=== PATIENT | female | born 1995 | race Caucasian/White ===

== ENCOUNTER 2017-06-06 13:44 | Outpatient (CLI) | payer BC, OTHER ==
[~2017-06-06 13:44] MED LIST: ALBUAER INH; INDSR160 PO; MEDR150I IM; MULT-506 PO; OMEP40CA36 PO; ONDA4TAB7 SL; POLY335019 PO; RIZA10TA18 PO
== END 2017-06-06 14:40 | disposition home or self-care (01) ==
LOC: C.LD 13:44 → C.OPB 13:44
PROVIDERS: ATTEND Obstetrics & Gynecology
DX: O36.8120 Decreased fetal movements, second trimester, not applicable or unspecified (principal); R10.9 Unspecified abdominal pain; Z3A.21 21 weeks gestation of pregnancy

== ENCOUNTER → 2017-07-25 | Outpatient (CLI) | payer OTHER ==
[2017-07-25 12:36] LABS: HEMATOCRIT 36.2 % (37-47); HEMOGLOBIN 12.4 g/dL (12.0-16.0)
== END | disposition home or self-care (01) ==
LOC: C.LAB1850 10:20
PROVIDERS: ATTEND Obstetrics & Gynecology
DX: O99.213 Obesity complicating pregnancy, third trimester (principal); E66.9 Obesity, unspecified; Z3A.00 Weeks of gestation of pregnancy not specified

== ENCOUNTER → 2017-09-20 | Outpatient (CLI) | payer OTHER | END | disposition home or self-care (01) | LOC: C.LABSPEC 13:33 | PROVIDERS: ATTEND Obstetrics & Gynecology | DX: Z34.03 Encounter for supervision of normal first pregnancy, third trimester (principal) ==

== ENCOUNTER 2017-10-08 00:18 | Outpatient (CLI) | payer OTHER ==
[~2017-10-08] VITALS: Ht 175.3 cm; Wt 144.0 kg
[2017-10-08 01:29] VITALS: Ht 175.3 cm; Wt 144.0 kg
== END 2017-10-08 03:35 | disposition home or self-care (01) ==
LOC: C.OPB 00:18 → C.LD 00:18 → C.OPB 03:35
PROVIDERS: ATTEND Obstetrics & Gynecology
DX: O62.9 Abnormality of forces of labor, unspecified (principal); Z3A.38 38 weeks gestation of pregnancy

== ENCOUNTER 2017-10-19 05:20 | Inpatient (IN) | payer BC, OTHER ==
[~2017-10-19] VITALS: Ht 177.8 cm; Wt 145.0 kg
[~2017-10-19 05:20] MED LIST changes: -ALBUAER INH; -INDSR160 PO; -MEDR150I IM; -ONDA4TAB7 SL; -POLY335019 PO; -RIZA10TA18 PO
[2017-10-19] MEDS ORDERED: LACTATED RINGER'S 1000ML 1,000 ML IV PRN (06:08)
[2017-10-19] MEDS ORDERED: LACTATED RINGER'S 1000ML 500 ML IV PRN ×2 (06:08→09:05)
[2017-10-19] MEDS ORDERED: OXYTOCIN 30 UNITS/500ML NSS IV PRN ×2 (06:15→18:45)
[2017-10-19 06:17] VITALS: Ht 177.8 cm; Wt 145.0 kg
[2017-10-19 06:51] LABS: HEMATOCRIT 38.1 % (37-47); MEAN CORPUSCULAR HEMOGLOBIN 29.3 pg (25-34); MEAN CORPUSCULAR HGB CONC 34.1 g/dl (32-36); MEAN PLATELET VOLUME 9.7 fL (7.4-10.4); PLATELET COUNT 307 K/uL (130-400); RED CELL DISTRIBUTION WIDTH SD 43.7 fL (36.4-46.3); WHITE BLOOD COUNT 15.36 K/uL (4.8-10.8)
[2017-10-19] MEDS: LACTATED RINGER'S 1000ML 1,000 ML IV SCH ×3 (07:29→16:57)
[2017-10-19] MEDS ORDERED: NALOXONE HCL INJ 1 MG in SODIUM CHLORIDE 0.9% 1000ML 1,000 ML IV PRN (09:05)
[2017-10-19] MEDS ORDERED: FENTANYL CITRATE INJ 50 MCG/1 ML 2 ML VIAL ONE ×2 (09:07→10:33)
[2017-10-19] MEDS ORDERED: BUPIVACAINE 0.25% 30 ML VIAL ONE (09:07)
[2017-10-19] MEDS ORDERED: EpHEDrine SULFATE INJ 50 MG/ML AMP ONE (09:07)
[2017-10-19] MEDS ORDERED: FENTANYL 2MCG/ML ROPIV 1.25MG/ML 100ML BAG EPI ONE (09:08)
[2017-10-19] MEDS ORDERED: EpHEDrine SULFATE INJ 50 MG/ML AMP IV PRN (09:15)
[2017-10-19] MEDS ORDERED: NALBUPHINE HCL INJ 10 MG/ML AMP IV PRN (09:15)
[2017-10-19] MEDS ORDERED: ONDANSETRON INJ 2 MG/ML 2 ML VIAL IV PRN (09:15)
[2017-10-19] MEDS ORDERED: DiphenhydrAMINE HCL 50 MG/ML VIAL IV PRN (09:15)
[2017-10-19] MEDS ORDERED: NALOXONE HCL INJ 0.4 MG/1 ML VIAL/CARP IV PRN (09:15)
[2017-10-19] MEDS: FENTANYL 2MCG/ML ROPIV 1.25MG/ML 100ML BAG EPI PRN ×2 (15:04→16:56)
[2017-10-19] MEDS: ACETAMINOPHEN 325 MG TAB PO PRN (15:50)
[2017-10-19] MEDS ORDERED: ACETAMINOPHEN/CODEINE 300/30MG TAB PO PRN ×2 (18:45)
[2017-10-19] MEDS ORDERED: SUPERCREAM 0.870 % 15GM JAR EXT PRN (18:45)
[2017-10-19] MEDS ORDERED: BENZOCAINE 20% AER SPR 82.5 GM CAN EXT PRN (18:45)
[2017-10-19] MEDS ORDERED: LANOLIN OINT EXT PRN (18:45)
[2017-10-19] MEDS ORDERED: OXYCODONE/ACETAMINOPHEN 5-325 TAB PO PRN (18:45)
[2017-10-19] MEDS ORDERED: DIPHTHERIA/TETANUS/PERTUSSIS 0.5 ML SYR/VIAL IM. ONE (18:45)
[2017-10-19] MEDS ORDERED: ACETAMINOPHEN 325 MG TAB PO PRN (18:45)
[2017-10-19] MEDS ORDERED: HYDROCORTISONE ACETATE 25 MG SUPP PR PRN (18:45)
[2017-10-19] MEDS: DOCUSATE SODIUM 100 MG CAP PO SCH (20:00)
[2017-10-19 22:30] VITALS: BP 105/68; PULSE 88; TEMP 36.9
--- NOTE | 2017-10-19 23:01 | Anesthesia Procedure Note ---
Anesthesia Epidural Removal Nt Date & Time Oct 19, 2017 at 23:01 Vital Signs Pain Intensity: 1.0 Notes Mental Status: alert / awake / arousable, participated in evaluation Nausea / Vomiting: adequately controlled Pain: adequately controlled Airway Patency, RR, SpO2: stable & adequate BP & HR: stable & adequate Hydration State: stable & adequate Neuraxial Anesthesia: was administered, sensory block is resolving Anesthetic Complications: no major complications apparent, pt satisfied with anesthetic care Epidural: removed without complications, with tip intact
--- NOTE | 2017-10-19 23:29 | DELIVERY SUMMARY ---
DATE OF OPERATION: 10/19/2017 VAGINAL DELIVERY NOTE Dotty presented to Dr. Russell on the green end worker of 10/19/2017, with ruptured membranes. She presented without labor. Pitocin was started for augmentation. Group B strep negative. The heart was category 1. Pitocin was started by Dr. Russell and then the patient requested epidural. It should be noted that IUPC and scalp clip were placed as it was difficult to monitor the fetus and contractions due to maternal body habitus. Patient then progressed nicely after epidural to fully dilate and push for a short period of time delivering a baby in right occiput anterior position. Mouth and the nares suctioned, fluid was clear, no nuchal cord. Gentle traction used to deliver baby. No excessive force. Live vigorous male . Cord clamped and cut. Cord blood obtained. Cord blood collection done as well. Placenta removed with gentle traction. Second degree tear repaired with 3-0 Vicryl. IV Pitocin started. Sponge and instrument counts were correct. Rectal exam negative for any sutures or defects. Estimated blood loss 150 mL. I attest to the content of the Intraoperative Record and any orders documented therein. Any exception s are noted below.
[2017-10-20 00:20] VITALS: BP 105/68; PULSE 86; TEMP 36.9
[2017-10-20] MEDS: IBUPROFEN 600 MG TAB PO PRN ×3 (00:41→20:26)
[2017-10-20 05:35] VITALS: BP 119/88; PULSE 103; TEMP 36.9
[2017-10-20 06:24] LABS: HEMATOCRIT 34.1 % (37-47); HEMOGLOBIN 11.3 g/dL (12.0-16.0)
--- NOTE | 2017-10-20 06:55 | Progress Note ---
Subjective Oct 20, 2017. Subjective conversation w/ patient, physical exam, chart review, lab review Ambulation: ambulating normally Voiding: no voiding problems Passing Gas: Yes Diet Tolerance: Regular Diet Lochia: Moderate Feeding Type: Breast Feeding Review of Systems Constitutional: No fever, No chills Respiratory: No cough, No shortness of breath Cardiac: No chest pain, No palpitations Abdomen: No pain, No nausea, No vomiting Female : No dysuria Objective Vital Signs Date Time Temp Pulse Resp B/P (MAP) Pulse Ox O2 Delivery O2 Flow Rate FiO2 10/20/17 05:35 36.9 103 18 119/88 (98) Room Air 10/20/17 00:20 36.9 86 20 105/68 (80) Room Air 10/20/17 00:20 Room Air 10/19/17 22:30 36.9 88 20 105/68 (80) Room Air 10/19/17 22:30 Room Air Physical Exam General Appearance: WELL-APPEARING, WD/WN, NO APPARENT DISTRESS Respiratory/Chest: chest non-tender, no respiratory distress Cardiovascular: regular rate, rhythm, no murmur Abdomen: non tender, soft Fundus: Firm Extremities: non-tender, normal inspection Laboratory Results Last 24 Hours Test 10/20/17 06:02 Hemoglobin 11.3 g/dL Hematocrit 34.1 % Assessment and Plan Post- Day#: 1 Continue Routine Care: 22, F PPD day 1, delivered vaginally yesterday evening. Vitals reviewed, WNL. Hbg 13 on admission, pending today. No signs or sx of anemia. 1. Recovery from vaginal delivery--cont. pp care; ambulate, control pain, monitor lochia, support Resident Physician Supervision Note: I interviewed and examined the patient. Discussed with Dr. Bassett and agree with findings and plan as documented in the note. Any exceptions or clarifications are listed here: [None] Documented By: Vitor Maki
--- NOTE | 2017-10-20 07:21 | Discharge Instructions ---
Discharge Instructions Date of Service Oct 20, 2017. Admission Reason for Admission: Check Ruptured Membranes Discharge Discharge Diagnosis / Problem: vaginal delivery Discharge Goals Goal(s): Routine recovery after delivery Medications Continue Dispensed Medications: supercream, dermaplast, tucks, lansinoh Activity Recommendations Activity Limitations: per Instructions/Follow-up section . Instructions / Follow-Up Instructions / Follow-Up ACTIVITY RECOMMENDATIONS: * Gradual return to full activity over the next 2-3 weeks. * No lifting - nothing heavier than baby over the next 2-3 weeks. * Do not engage in vigorous exercise, sexual activity or sports until cleared by your physician. * Do not drive or operate any motorized equipment until cleared by your physician. * You may shower/bathe daily. MEDICATIONS: For discomfort or pain, you may use Acetaminophen (Tylenol), Ibuprofen (Advil), or Naproxen (Aleve) following the package directions. For constipation you may use Colace following the package directions. BREAST CARE: If you are not breast feeding: * Wear a supportive bra 24 hours a day for one to two weeks. * Avoid stimulating your breasts and nipples as much as possible during the first few weeks after delivery. * When taking a shower, have the warm water hit your back, not breasts. * When your breasts feel full, apply ice packs. Usually three to four times a day helps ease the discomfort. * Take a mild pain medication (Tylenol / Motrin) when you are uncomfortable. If breast feeding: * Use breast milk to lubricate nipples. Lansinoh cream may be used for sore nipples. You do not need to remove cream prior to breast feeding. If using a different brand of cream, check the label for directions regarding removal of cream prior to nursing. * Wear a supportive bra. * If having problems with breasts or breast feeding, call a community health consultant or your health care provider. EPISIOTOMY CARE: After delivery, if you have an episiotomy (stitches), the following steps will ease discomfort and aid healing. * For the first 24 hours after delivery, place ice packs next to your episiotomy to help reduce swelling. * After the first 24 hour-period, sitz baths, either portable or in the tub, are suggested. A shower with a shower arm sprayed over the episiotomy may be comforting. * Tamar care should be done after each voiding and bowel movement. Squirt warm water from a plastic bottle over the perineum (region of the body between the anus and urinary opening) and pat dry. * Use Dermoplast to ease discomfort. Shake container. [place] directly over the episiotomy. Place a Tucks on a clean sanitary pad next to your episiotomy. SPECIAL CARE INSTRUCTIONS: When you are discharged from the hospital, it is important for you to follow the instructions listed below: * During the first week at home, you should be able to care for yourself and your baby. In addition, the usual light household activities are encouraged. * Limit your activities to the way you feel. Do not try to clean the house or move furniture. Be sensible. * If you actively engage in sports and have done so up until the time of your delivery, you may resume these activities as soon as you feel able. This may take up to one month or even longer. Use good judgment. * Continue to take your vitamins for at least six weeks after the of your baby. * Your diet need not be limited unless you were on a special diet before your delivery. Breast-feeding mothers need around 2500 calories per day and at least 64-80 ounces of fluid per day (8 to 10 glasses). * You should eat foods from the four major food groups. Crash diets or fad diets are to be avoided. Eating lean meats, fresh fruits and vegetables, low-fat dairy products, high fiber foods and a regular exercise program, will help you get back to your pre- weight without putting your health at risk. * Constipation is sometimes a problem after delivery. Take a mild laxative as needed. If breast feeding, Milk of Magnesia is acceptable to use. You may use a suppository or Fleets enema if no episiotomy. * A daily shower or tub bath is suggested. Be sure to thoroughly and gently dry the perineum. * A bloody vaginal discharge will usually continue until around four weeks post . A small amount of bleeding may continue for as long as six weeks. Vaginal discharge changes from the bright red bleeding after delivery to pink then brownish and finally yellowish-pink before becoming white and disappearing. * Bleeding may increase with activity. Your first period may come in 4-8 weeks. If you are breast feeding, your period may be delayed even longer. * [place] (sex) can begin whenever both you and your partner feel comfortable and do not have any form of genital infection. It is recommended that you wait at least six weeks for internal and external healing to occur. If you have questions, please talk to your health care practitioner. A condom should be used to prevent infection and . * Foreplay, gentle intercourse and lubrication is very important the first several times to prevent pain. A water-based lubricant such as K-Y jelly or Astroglide may be used. * If you have RH negative blood and your baby is RH positive, you will receive RHOGAM by injection prior to discharge. The nurse will give you a card to keep with you that has the date and place that you received RHOGAM after delivery. * During your care, you had a Rubella screen done to check for the presence of rubella antibodies in your blood. If your test was negative, you will receive a Rubella vaccine prior to discharge. This vaccine may cause a fever, soreness at the injection site and flu-like symptoms. If these symptoms persist, notify your health care practitioner. is not advised for one month after a Rubella vaccine. * Verbalizes understanding of car seat law as reviewed with patient nursing. * Car Seat hand-out given and reviewed with patient by nursing. * Shaken baby information reviewed with patient by nursing. Call you doctor if: * Heavy bleeding (saturating several pads an hour) or passing clots the size of your fist. * A fever >101 degrees F (38.3 degrees C) on two occasions four hours apart and /or chills. * Unusual pain in the pelvic or vaginal areas. * "Baby Blues" lasting longer than two weeks. If you have any questions or concerns, call your health care practitioner at . FOLLOW UP VISIT: * Please call the office at to schedule a 6 week examination. It is important you keep this appointment. It is important for you to make arrangements for either yearly or twice yearly check-ups thereafter. Current Hospital Diet Patient's current hospital diet: Regular OB Diet Discharge Diet Recommended Diet: Regular Diet, Regular OB Diet Pending Studies Studies pending at discharge: no Medical Emergencies . Who to Call and When: Medical Emergencies: If at any time you feel your situation is an emergency, please call 911 immediately. . Non-Emergent Contact Non-Emergency issues call your: Primary Care Provider, [facility] . . "Provider Documentation" section prepared by Darius Bassett. .
[2017-10-20 07:25] VITALS: BP 113/76; PULSE 92; TEMP 36.8
[2017-10-20] MEDS: DOCUSATE SODIUM 100 MG CAP PO SCH ×2 (08:08→20:25)
[2017-10-20] MEDS: PRENATAL VITAMIN TAB PO SCH (08:08)
[2017-10-20] MEDS: ACETAMINOPHEN 325 MG TAB PO PRN ×2 (11:06→15:18)
[2017-10-20 12:00] VITALS: BP 115/79; PULSE 91; TEMP 36.8
[2017-10-20 15:20] VITALS: BP 115/77; PULSE 99; TEMP 36.4
[2017-10-20] MEDS ORDERED: BISACODYL 5 MG TABEC PO SCH (20:00)
[2017-10-20 23:35] VITALS: BP 123/84; PULSE 96; TEMP 36.7
[2017-10-21] MEDS: IBUPROFEN 600 MG TAB PO PRN ×2 (01:19→10:17)
[2017-10-21 06:40] LABS: HEMATOCRIT 30.8 % (37-47); HEMOGLOBIN 10.3 g/dL (12.0-16.0); MEAN CELL VOLUME 87.5 fL (80-100); MEAN CORPUSCULAR HEMOGLOBIN 29.3 pg (25-34); MEAN CORPUSCULAR HGB CONC 33.4 g/dl (32-36); MEAN PLATELET VOLUME 9.7 fL (7.4-10.4); PLATELET COUNT 257 K/uL (130-400); RED CELL DISTRIBUTION WIDTH CV 14.4 % (11.5-14.5); WHITE BLOOD COUNT 10.74 K/uL (4.8-10.8)
--- NOTE | 2017-10-21 06:49 | Progress Note ---
Subjective Oct 21, 2017. Subjective conversation w/ patient, physical exam Ambulation: ambulating normally Voiding: no voiding problems Passing Gas: Yes Diet Tolerance: Regular Diet Lochia: Moderate Feeding Type: Breast Feeding Pain: controlled Review of Systems Constitutional: No problem reported Respiratory: No problem reported Cardiac: No problem reported Breast: No problem reported Abdomen: No problem reported Female : No problem reported Objective Vital Signs Date Time Temp Pulse Resp B/P (MAP) Pulse Ox O2 Delivery O2 Flow Rate FiO2 10/20/17 23:35 Room Air 10/20/17 23:35 36.7 96 18 123/84 (97) Room Air 10/20/17 15:20 Room Air 10/20/17 15:20 36.4 99 20 115/77 (90) Room Air 10/20/17 12:00 36.8 91 18 115/79 (91) Room Air 10/20/17 07:25 36.8 92 20 113/76 (88) Room Air 10/20/17 07:25 Room Air Physical Exam General Appearance: WELL-APPEARING, NO APPARENT DISTRESS Respiratory/Chest: no respiratory distress Cardiovascular: regular rate, rhythm Abdomen: non tender, soft Fundus: Firm Extremities: normal inspection Laboratory Results Last 24 Hours Test 10/21/17 06:10 White Blood Count 10.74 K/uL Red Blood Count 3.52 M/uL Hemoglobin 10.3 g/dL Hematocrit 30.8 % Mean Corpuscular Volume 87.5 fL Mean Corpuscular Hemoglobin 29.3 pg Mean Corpuscular Hemoglobin Concent 33.4 g/dl RDW Standard Deviation 46.0 fL RDW Coefficient of Variation 14.4 % Platelet Count 257 K/uL Mean Platelet Volume 9.7 fL Assessment and Plan Post- Day#: 2 Continue Routine Care: PPD#2 doing well. Discussed discharge instructions. RTO 6w.
[2017-10-21] MEDS ORDERED: BISACODYL 10 MG SUPP PR PRN (07:00)
[2017-10-21 08:00] VITALS: BP 115/79; PULSE 91; TEMP 36.7
[2017-10-21] MEDS: PRENATAL VITAMIN TAB PO SCH (08:17)
[2017-10-21] MEDS: DOCUSATE SODIUM 100 MG CAP PO SCH (08:17)
[2017-10-21 15:45] VITALS: BP 123/80; PULSE 92; TEMP 36.4
[2017-10-21 18:55] VITALS: BP_DIAS 80; PULSE 92; TEMP 36.4
== END 2017-10-21 18:55 | disposition home or self-care (01) | DRG 775 ==
LOC: C.OPB 05:20 → C.LD 05:20 → C.OPB 18:22 → C.LD 18:23 → C.OBG 22:55
PROVIDERS: ADMIT Obstetrics & Gynecology; ATTEND Obstetrics & Gynecology
PROC: 4A1H7CZ Monitoring of Products of Conception, Cardiac Rate, Via Natural or Artificial Opening (ICD-10-PCS; principal; 2017-10-19)
PROC: 10H073Z Insertion of Monitoring Electrode into Products of Conception, Via Natural or Artificial Opening (ICD-10-PCS; principal; 2017-10-19)
PROC: 0KQM0ZZ Repair Perineum Muscle, Open Approach (ICD-10-PCS; principal; 2017-10-19)
PROC: 10E0XZZ Delivery of Products of Conception, External Approach (ICD-10-PCS; principal; 2017-10-19)
DX: O70.1 Second degree perineal laceration during delivery (principal); Z37.0 Single live birth; Z3A.40 40 weeks gestation of pregnancy

== ENCOUNTER 2020-07-18 05:56 | Inpatient (IN) ==
[2020-07-18] MEDS ORDERED: LACTATED RINGER'S 1,000 ML IV PRN (06:39)
[2020-07-18] MEDS ORDERED: OXYTOCIN 30 UNITS/500 ML BAG IV PRN ×2 (06:39→06:45)
[2020-07-18] MEDS ORDERED: HYDROCORTISONE ACETATE 25 MG SUPP PR PRN (06:45)
[2020-07-18] MEDS ORDERED: DIPHTHERIA/TETANUS/PERTUSSIS 0.5 ML SYR/VIAL IM ONE (06:45)
[2020-07-18] MEDS ORDERED: SUPERCREAM 0.870% 15 GM JAR EXT PRN (06:45)
[2020-07-18] MEDS ORDERED: bisacodyL 10 MG SUPP PR PRN (06:45)
[2020-07-18] MEDS ORDERED: BENZOCAINE 20% AER SPR 82.5 GM CAN EXT PRN (06:45)
[2020-07-18] MEDS ORDERED: ACETAMINOPHEN 325 MG TAB PO PRN (06:45)
--- NOTE | 2020-07-18 06:53 | Delivery Summary ---
Vaginal Delivery Summary Date of Service July 18, 2020 Patient is a 24-year-old 3 para 1-0-1-1 white female EDC of 07/27/2020 wh o presented after rupturing meconium perineum stained fluid at approximately 0500 hrs. Per contractions increased in intensity and upon arrival at 630 she was complete and +2 station. She delivered through 1 contraction over intact perineum of a viable female infant. The cord was clamped and cut after delivery as the had poor respiratory effort. The infant was taken to the baby bed for further evaluation and warming. Please see the nurses notes for the baby's care. The placenta was expressed intact with a three-vessel cord. There was a superficial labial and perineal laceration, these are not bleeding and therefore not repaired. Estimated blood loss was 350 cc. bleeding was controlled with dilute Pitocin. Mother and infant now recovering well after delivery. [facility] [place] Vaginal Delivery Charge Vaginal Delivery Codes: 25970 global code for the antepartum, delivery, and post-
[2020-07-18 07:05] LABS: Hematocrit (blood only) 35.7 % (37-47); Hemoglobin 11.5 g/dL (12.0-16.0); Mean Corpuscular Hemoglobin 27.8 pg (25-34); Mean Corpuscular Hgb Conc 32.2 g/dL (32-36); Mean Corpuscular Volume 86.2 fL (80-100); Mean Platelet Volume 10.4 fL (7.4-10.4); Platelet Count 258 K/uL (130-400); RDW Coefficient of Variation 13.4 % (11.5-14.5); RDW Standard Deviation 42.3 fL (36.4-46.3); Red Blood Count 4.14 M/uL (4.2-5.4)
[2020-07-18] MEDS: IBUPROFEN 600 MG TAB PO PRN ×3 (07:13→22:55)
[2020-07-18] MEDS ORDERED: SERTRALINE HCL 50 MG TABLET PO SCH (09:00)
[2020-07-18] MEDS: DOCUSATE SODIUM 100 MG CAP PO SCH ×2 (09:29→21:07)
[2020-07-18] MEDS: PANTOprazole 40 MG TAB PO SCH (09:29)
[2020-07-18] MEDS: PRENATAL VITAMIN 1 TAB PO SCH (09:29)
[2020-07-18] MEDS ORDERED: Nursing to Pharmacy Communication SCH (09:45)
[2020-07-18 10:05] LABS: Creatinine Clr Calc Pharmacy 181.8 ml/min; Est GFR (African American) 132.4; Est GFR (Non-African American) 114.2
[2020-07-18] MEDS: SERTRALINE HCL 50 MG TABLET PO SCH (21:07)
[2020-07-19] MEDS ORDERED: ONDANSETRON 4 MG OD TAB PO PRN (00:37)
[2020-07-19] MEDS ORDERED: ONDANSETRON 4 MG OD TAB ONE ×2 (00:43→00:44)
[2020-07-19 06:18] LABS: Hematocrit (blood only) 31.3 % (37-47); Hemoglobin 9.9 g/dL (12.0-16.0); Mean Corpuscular Hemoglobin 27.7 pg (25-34); Mean Corpuscular Hgb Conc 31.6 g/dL (32-36); Mean Corpuscular Volume 87.7 fL (80-100); Mean Platelet Volume 10.2 fL (7.4-10.4); Platelet Count 252 K/uL (130-400); RDW Coefficient of Variation 13.8 % (11.5-14.5); RDW Standard Deviation 44.1 fL (36.4-46.3); Red Blood Count 3.57 M/uL (4.2-5.4); White Blood Count 15.07 K/uL (4.8-10.8)
--- NOTE | 2020-07-19 07:05 | Obstetrical Progress Note ---
Date of Service <Ankur Dsouza MD - Last Filed: 07/19/20 07:15> July 19, 2020 Assessment & Plan <Ankur Dsouza MD - Last Filed: 07/19/20 07:15> (1) : A/P: Dotty Humphreys is a 24 y/o female on PPD#1 following at 38+4 weeks. * Patient feels well today; eating well, voiding well, ambulating well * Pain well-controlled with ibuprofen 600mg q4h prn * PNL: Rh pos, RI, GBS pos, COVID neg * Routine postcesarean care: OOB, ambulation, diet progression as tolerated * After discharge, will have six-week follow-up with Dr. Samayoa Weeks of gestation: 15 weeks Qualified Code(s): Z3A.15 - 15 weeks gestation of Subjective <Ankur Dsouza MD - Last Filed: 07/19/20 07:15> Dotty Humphreys is a 24 y/o female on PPD#1 following at 38+4 weeks. She reports feeling well overall this morning. Mild abdominal cramping and 3/10 pain well managed on analgesics. Voiding well. Tolerating meals overnight without difficulty. Patient has been able to ambulate some. Has persistent lochia with some improvement this morning. Currently and supplementing with formula. Denies CP, SOB, nausea, vomiting, lightheadedness, dizziness, calf pain, or other symptoms. Physical Exam <Ankur Dsouza MD - Last Filed: 07/19/20 07:15> General: alert, oriented, no acute distress Cardiac: regular rate and rhythm, no murmurs appreciated Respiratory: lungs clear to auscultation bilaterally a/p, no wheezes/rales/rhonchi, no increased work of breathing, symmetrical chest rise, no respiratory distress Abdomen: soft, minimally tender, nondistended, bowel sounds present Uterus: uterine fundus firm, palpable 2 cm below umbilicus Lower extremities: no lower extremity edema or swelling, no deep calf pain, Sidney's negative bilaterally Results & Data ([facility]) <Aknur Dsouza MD - Last Filed: 07/19/20 07:15> Vital Signs (Past 12 Hours) Vital Signs Temp Pulse Resp BP Pulse Ox 01/11/21 04:30 36.3 C L 76 18 133/80 07/18/20 23:35 36.5 C 82 16 130/90 07/18/20 19:42 36.4 C L 89 16 130/86 97 <Renetta Samayoa MD, FACOG - Last Filed: 07/19/20 07:22> Co-Signing Physician Notes Resident Physician Supervision Note: I interviewed and examined the patient. Discussed with Dr. Dsouza and agree with findings and plan as documented in the note. Any exceptions or clarifications are listed here: [None] Documented By: Renetta Samayoa MD, FACOG Resident Activity Tracking <Ankur Dsouza MD - Last Filed: 07/19/20 07:15> Resident Involvement: Resident Care Provided Care Provided: OB Delivery
[2020-07-19] MEDS: DOCUSATE SODIUM 100 MG CAP PO SCH ×2 (07:31→21:06)
[2020-07-19] MEDS: PANTOprazole 40 MG TAB PO SCH (07:31)
[2020-07-19] MEDS: IBUPROFEN 600 MG TAB PO PRN ×2 (07:31→19:09)
[2020-07-19] MEDS: PRENATAL VITAMIN 1 TAB PO SCH (07:31)
[2020-07-19] MEDS ORDERED: bisacodyL 5 MG TABEC PO SCH (20:00)
[2020-07-19] MEDS: SERTRALINE HCL 50 MG TABLET PO SCH (21:06)
[2020-07-20 06:09] LABS: Hematocrit (blood only) 31.3 % (37-47); Hemoglobin 9.9 g/dL (12.0-16.0)
--- NOTE | 2020-07-20 06:43 | Obstetrical Progress Note ---
Date of Service July 20, 2020 Assessment & Plan (1) : 24 yo PP2 from precipitous , doing well -Meeting all pp milestones -O+/rubella immune/ -f/u 6 weeks for appt -Had mild range BPs likely due to impending delivery and one pp, reassuring. Will have pt f/u in 1 wk for BP check just to make sure, aware of s/s to be aware of -Stable for d/c home today Weeks of gestation: 15 weeks Qualified Code(s): Z3A.15 - 15 weeks gestation of Subjective Ambulation: ambulating normally Voiding: no voiding problems Passing Gas:: Yes Diet Tolerance:: regular diet Lochia:: Small Feeding Type:: breast feeding Pain well managed with medication Review of Systems Denies fevers, chills, n/v, DUFF, CP, SOB Physical Exam Constitutional WD/WN, vitals as above no acute distress Respiratory normal respiratory effort, lungs clear to auscultation Cardiovascular RRR, no murmur, no edema Gastrointestinal (Abdomen) Percussion/Palpation: abdomen soft; abdomen nontender and no guarding fundus firm below umbilicus and NT Musculoskeletal BLE symmetric, nonerythematous, nontender Results & Data ([facility]) Vital Signs (Past 12 Hours) Vital Signs Temp Pulse Resp BP Pulse Ox 07/20/20 00:05 98.1 F 80 18 126/88 07/19/20 19:55 97.5 F L 84 18 122/84 97 Laboratory Results 07/20/20 Range/Units 05:49 Hgb 9.9 L (12.0-16.0) g/dL Hct 31.3 L (37-47) %
[2020-07-20] MEDS: IBUPROFEN 600 MG TAB PO PRN (07:00)
[2020-07-20] MEDS: PRENATAL VITAMIN 1 TAB PO SCH (07:30)
[2020-07-20] MEDS: DOCUSATE SODIUM 100 MG CAP PO SCH (07:30)
[2020-07-20] MEDS: PANTOprazole 40 MG TAB PO SCH (07:30)
== END 2020-07-20 11:15 | disposition home or self-care (01) | DRG 807 ==
LOC: OPB 05:56 → 4S1 05:59 → 4S2 09:53